=== PATIENT | male | born 1980 | race Hispanic/Latino ===

== ENCOUNTER 2018-01-31 12:23 | Emergency (ER) | payer OTHER ==
--- NOTE | 2018-01-31 13:25 | ED PDOC ---
HPI: Chest Pain Time Seen by Provider: 01/31/18 12:50 Chief Complaint (Nursing): Chest Pain Chief Complaint (Provider): Chest Pain History Per: Patient History/Exam Limitations: no limitations Onset/Duration Of Symptoms: Days (x14) Current Symptoms Are (Timing): Still Present Associated Symptoms: Diaphoresis. denies: Nausea Additional Complaint(s): Pete Tran is a 37 year old male with no past medical history, who presents to the ER with complains of intermittent substernal chest pain with associated diaphoresis, onset 2 weeks ago. Patient was seen in [facility] ED for similar symptoms two weeks ago where he was discharged and they recommended he get outpatient stress tests. He reports he has not yet visited an outpatient clinic for these tests. Patient denies any shortness of breath, nausea, or vomiting. He offers no other medical complaints at this time. PMD: non-[facility] provider Past Medical History Reviewed: Historical Data, Nursing Documentation, Vital Signs Vital Signs: Last Vital Signs Temp 97 F L 01/31/18 12:38 Pulse 90 01/31/18 12:38 Resp 18 01/31/18 12:38 BP 135/89 01/31/18 12:38 Pulse Ox 98 01/31/18 13:29 - Medical History PMH: No Chronic Diseases - Surgical History Surgical History: No Surg Hx - Family History Family History: States: Unknown Family Hx - Home Medications Home Medications: Ambulatory Orders Medication Instructions Recorded Non-Formulary 1 ea .ROUTE Q6 #1 ea 01/31/18 - Allergies Allergies/Adverse Reactions: Allergies Allergy/AdvReac Type Severity Reaction Status Date / Time aspirin Allergy RASH Verified 01/31/18 12:38 Review of Systems ROS Statement: Except As Marked, All Systems Reviewed And Found Negative Constitutional: Negative for: Fever Cardiovascular: Positive for: Chest Pain (substernal) Respiratory: Negative for: Shortness of Breath Gastrointestinal: Negative for: Nausea, Vomiting Physical Exam - Reviewed Nursing Documentation Reviewed: Yes Vital Signs Reviewed: Yes - Physical Exam Appears: Positive for: Non-toxic, No Acute Distress Head Exam: Positive for: ATRAUMATIC, NORMAL INSPECTION, NORMOCEPHALIC Skin: Positive for: Normal Color, Warm, Dry Eye Exam: Positive for: Normal appearance, EOMI, PERRL ENT: Positive for: Normal ENT Inspection Neck: Positive for: Normal, Painless ROM Cardiovascular/Chest: Positive for: Regular Rate, Rhythm. Negative for: Murmur , Other (chest wall tenderness) Respiratory: Positive for: Normal Breath Sounds. Negative for: Respiratory Distress Gastrointestinal/Abdominal: Positive for: Normal Exam, Soft. Negative for: Tenderness Back: Positive for: Normal Inspection. Negative for: L CVA Tenderness, R CVA Tenderness, Vertebral Tenderness Extremity: Positive for: Normal ROM. Negative for: Pedal Edema, Calf Tenderness , Deformity, Swelling (calf) Neurologic/Psych: Positive for: Alert, Oriented (x3) - Laboratory Results Result Diagrams: 01/31/18 13:00 01/31/18 13:00 - ECG O2 Sat by Pulse Oximetry: 98 (RA) Pulse Ox Interpretation: Normal Medical Decision Making Medical Decision Making: Time: 13:06 Plan: --EKG --CMP --Troponin --CBC --CXR Scribe Attestation: Documented by Marline Dobson, acting as a scribe for Maynor Seymour MD. Provider Scribe Attestation: All medical record entries made by the Scribe were at my direction and personally dictated by me. I have reviewed the chart and agree that the record accurately reflects my personal performance of the history, physical exam, medical decision making, and the department course for this patient. I have also personally directed, reviewed, and agree with the discharge instructions and disposition. Disposition - Clinical Impression Clinical Impression: Chest pain - Patient ED Disposition Is Patient to be Admitted: No - Disposition Referrals: [facility] [Outside] Disposition: Routine/Home Disposition Time: 16:34 Condition: FAIR Prescriptions: Non-Formulary 1 ea .ROUTE Q6 #1 ea Instructions: Chest Pain Forms: [employer] ([place])
[2018-01-31 13:48] LABS: BASO # 0.1 K/uL (0.0-0.2); BASO % 0.7 % (0.0-2.0); EOS # 0.1 K/uL (0.0-0.7); EOS % 0.9 % (0.0-4.0); HEMOGLOBIN 16.2 g/dL (12.0-18.0); LYMPH # 1.5 K/uL (1.0-4.3); LYMPH % 19.6 % (20.0-40.0); MEAN CELL VOLUME 96.2 fl (80.0-94.0); MEAN CORPUSCULAR HEMOGLOBIN 33.8 pg (27.0-31.0); MEAN CORPUSCULAR HGB CONC 35.1 g/dL (33.0-37.0); MEAN PLATELET VOLUME 8.1 fl (7.2-11.7); MONO # 0.6 K/uL (0.0-0.8); MONO % 8.1 % (0.0-10.0); NEUT # 5.6 K/uL (1.8-7.0); NEUT % 70.7 % (50.0-75.0); NRBC % 0.1 % (0.0-0.0); RBC 4.81 Mil/uL (4.40-5.90); RED CELL DISTRIBUTION WIDTH 12.5 % (11.5-14.5); WHITE BLOOD COUNT 7.9 K/uL (4.8-10.8)
[2018-01-31 13:59] LABS: ALB/GLOB RATIO 1.4 (1.0-2.1); ALBUMIN 5.1 g/dL (3.5-5.0); ALT/SGPT 292 U/L (21-72); AST/SGOT 213 U/L (17-59); BLOOD UREA NITROGEN 14 mg/dl (9-20); CALCIUM 10.2 mg/dL (8.4-10.2); GFR AFRICAN-AMERICAN > 60; GFR NON-AFRICAN AMERICAN > 60
--- NOTE | 2018-01-31 14:23 | CARD ---
APPROVED REPORT EKG Measurement Heart [id number] <Conclusion> Normal sinus rhythm Normal ECG
[2018-01-31] MEDS ORDERED: Iohexol 300 100 ML IJ ONE (15:15)
[2018-01-31] MEDS ORDERED: Sodium Chloride 0.9% 100 ML ONE (15:16)
--- NOTE | 2018-01-31 16:10 | CT ---
PROCEDURE: CT Abdomen and Pelvis with contrast HISTORY: Elevated LFTs COMPARISON: None available. TECHNIQUE: Contrast dose: 95 mL Omnipaque 300 Radiation dose: Total exam DLP = 804.59 mGy-cm. This CT exam was performed using one or more of the following dose reduction techniques: Automated exposure control, adjustment of the mA and/or kV according to patient size, and/or use of iterative reconstruction technique. FINDINGS: LOWER THORAX: No visible consolidation, pleural effusion, or pneumothorax. LIVER: Hypoattenuation of the liver compatible with hepatic steatosis. GALLBLADDER AND BILE DUCTS: Unremarkable. PANCREAS: Unremarkable. SPLEEN: Unremarkable. ADRENALS: Unremarkable. KIDNEYS AND URETERS: The kidneys enhance symmetrically. No hydronephrosis or obstructing calculus identified. VASCULATURE: No aortic aneurysm. BOWEL: Stomach is nondistended. Lack of oral contrast limits evaluation for bowel pathology. Bowel loops appear within normal limits of caliber without evidence of obstruction. APPENDIX: The appendix appears within normal limits of caliber. No secondary signs of acute appendicitis. PERITONEUM: No significant free fluid. No definite free air. LYMPH NODES: No bulky adenopathy identified. BLADDER: Unremarkable. REPRODUCTIVE: Unremarkable. BONES: No acute osseous abnormality is detected. OTHER FINDINGS: Tiny fat containing umbilical hernia. IMPRESSION: Hypoattenuation of the liver compatible with hepatic steatosis.
--- NOTE | 2018-01-31 16:17 | RAD ---
HISTORY: Chest pain COMPARISON: 12/26/2010. TECHNIQUE: Chest PA and lateral FINDINGS: LUNGS: No active pulmonary disease. PLEURA: No significant pleural effusion identified. No pneumothorax apparent. CARDIOVASCULAR: No radiographic findings to suggest acute or significant cardiovascular disease. OSSEOUS STRUCTURES: No significant abnormalities. Stable old healed rib fractures posterior laterally on the left. VISUALIZED UPPER ABDOMEN: Normal. OTHER FINDINGS: None. IMPRESSION: No active disease. No significant interval change compared to the prior examination(s).
[2018-01-31 19:27] VITALS: BP 124/79; PULSE 75; RESP 14; TEMP 98; O2SAT 99
== END 2018-01-31 17:01 | disposition home or self-care (01) ==
LOC: H.ER 12:23
DX: R07.89 Other chest pain (principal); R61 Generalized hyperhidrosis
CPT/HCPCS: 71046; 74177; 80053; 84484; 85025; 93005; 99285; Q9967